=== PATIENT | female | born 1985 | race Caucasian/White ===

== ENCOUNTER 2017-07-11 13:44 | Inpatient (IN) | payer BC ==
[2017-07-11] MEDS ORDERED: Sodium Chloride 0.9% 10 ML Syringe FLUSH PRN ×2 (13:58→14:07)
[2017-07-11] MEDS ORDERED: Nalbuphine 20 MG/1 ML Amp IVPUSH PRN (13:58)
[2017-07-11] MEDS ORDERED: Oxytocin/Lactated Ringers 10 UNIT/1,000 ML BAG IV SCH (14:00)
[2017-07-11] MEDS ORDERED: Lactated Ringers 1,000 ML IV SCH ×2 (14:00→14:15)
[2017-07-11] MEDS ORDERED: Lidocaine 1% 50 ML MDV INJECT ONE (14:07)
[2017-07-11] MEDS ORDERED: Ondansetron 4 MG/2 ML SDV IVPUSH PRN (14:07)
--- NOTE | 2017-07-11 14:25 | PCM.LDHP ---
L&D History of Present Illness - General Date of Service: 07/11/17 Admit Problem/Dx: Patient Status Order with Admit Dx/Problem 07/11/17 14:08 Patient Status [ADT] Routine Admission Diagnosis/Problem Admission Diagnosis/Problem Normal 07/12/17 05:24 Kristi is a 31-year-old 7 para 4115 female who is admitted on 07/11/2017 after being seen in clinic and found the having some mild contractions, cervix dilated to 3+ centimeters, 90% effaced, bulging bag guerra, vertex presentation , very soft cervix. She has a history of very short labors. She is admitted to labor and delivery for augmentation of labor with ruptured membranes. 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 Her DENNIS is set for 2017 by a certain last menstrual period starting 10/08/2016 and supported by 3 ultrasounds done 2016, 03/27/2017 and 06/06/2017. course was relatively unremarkable. She declined genetic screening. The EPDS score was 0 on 02/23/2017. Group B strep screen is negative. Patient declined flu vaccine. She is rubella immune. She plans to breast-feed. Prenatally patient gained approximately 29 pounds. Her vital signs are stable throughout the course. Fundal height growth was appropriate. Laboratory testing in shows her blood type AB+, negative antibody screen. Initial hemoglobin was 14.3 and platelets were 253,000. Rubella titer shows immunity. Urine culture was unremarkable. Hepatitis B surface antigen assay was negative. Second trimester testing showed a hemoglobin 11.9 g/dL. Platelets are 253,001 hour GTT was 118. Her group B strep screen was negative. Allergies: None Medications: 1. Ferrous sulfate 325 mg by mouth daily 2. vitamins 1 daily Past medical history 1. Vaginal delivery 5 2. Miscarriage February 2014 Past surgical history: 1. [place] teeth extraction 2005 Family history: parents are alive and in generally good health. Siblings are healthy. She denies any , seizure, bleeding or clotting problems in the family. Her review of systems: Skin-Negative Lungs- No infectious symptoms or shortness of breath Cardiovascular-no chest pain or exercise intolerance GI-negative -changes associated with only Musculoskeletal-negative Neurological-Negative Physical exam: Gen. patient is well-developed, well-nourished, pleasant female of stated age stressed. Skin is warm and dry without lesions. HEENT, neck and back within normal limits Cardiovascular exam shows regular rate and rhythm without murmurs. Lungs are clear with good breath sounds in all lung arechiga. Breast exam is deferred having that done at first visit found to be normal. Patient plans to breast-feed Abdomen is protuberant with fundal height of 38 cm Extremities and neurological exam grossly within normal limits. - Related Data Allergies/Adverse Reactions: Allergies Allergy/AdvReac Type Severity Reaction Status Date / Time No Known Allergies Allergy Verified 11/25/15 20:20 Home Medications: Home Meds Acetaminophen [Tylenol] 650 mg PO Q4H PRN #30 tablet 12/23/15 [Rx] Ibuprofen [IJD: Ibuprofen] 600 mg PO Q4H PRN #30 tablet 12/23/15 [Rx] Past Medical History - Past Surgical History HEENT Surgical History: Reports: Oral Surgery Social & Family History - Tobacco Use Smoking Status *Q: Never Smoker - Recreational Drug Use Recreational Drug Use: No H&P Review of Systems - Review of Systems: Review Of Systems: See Below L&D Exam - Exam Exam: See Below - Vital Signs Weight: 63.639 kg - Patient Data Result Diagrams: 07/11/17 14:14 Problem List Initiated/Reviewed/Updated: Yes Orders Last 24hrs: Active Orders 24 hr Category Date Time Status Patient Status [ADT] Routine ADT 07/11/17 14:08 Ordered Activity as Tolerated [RC] PFP Care 07/11/17 13:58 Active Activity as Tolerated [RC] PFP Care 07/11/17 14:08 Ordered Communication Order [RC] ASDIRECTED Care 07/11/17 13:58 Active Communication Order [RC] ASDIRECTED Care 07/11/17 14:08 Ordered Heart Tones [RC] ASDIRECTED Care 07/11/17 13:58 Active Heart Tones [RC] ASDIRECTED Care 07/11/17 14:08 Ordered Notify Provider [RC] PFP Care 07/11/17 13:58 Active Notify Provider [RC] PFP Care 07/11/17 14:08 Ordered Notify Provider [RC] PRN Care 07/11/17 13:58 Active Notify Provider [RC] PRN Care 07/11/17 14:08 Ordered Peripheral IV Care [RC] . DIRECTED Care 07/11/17 13:58 Active Peripheral IV Care [RC] . DIRECTED Care 07/11/17 14:08 Ordered Vital Signs [RC] PER UNIT ROUTINE Care 07/11/17 13:58 Active Vital Signs [RC] PER UNIT ROUTINE Care 07/11/17 14:08 Ordered Regular Diet [DIET] Diet 07/11/17 Dinner Active Regular Diet [DIET] Diet 07/11/17 Lunch Ordered CBC WITH AUTO DIFF [HEME] Stat Lab 07/11/17 13:58 Ordered Lactated Ringers [Ringers, Lactated] 1,000 ml Med 07/11/17 14:00 Active IV ASDIRECTED Lactated Ringers [Ringers, Lactated] 1,000 ml Med 07/11/17 14:15 Ordered IV ASDIRECTED Nalbuphine [Nubain] Med 07/11/17 13:58 Active 10 mg IVPUSH Q2H PRN Ondansetron [Zofran] Med 07/11/17 14:07 Ordered 4 mg IVPUSH Q4H PRN Oxytocin/Lactated Ringers [Pitocin in LR 10 Units/1,000 Med 07/11/17 14:00 Active ML] 10 unit in 1,000 ml IV .CONTINUOUS Sodium Chloride 0.9% [Saline Flush] Med 07/11/17 13:58 Active 10 ml FLUSH ASDIRECTED PRN Sodium Chloride 0.9% [Saline Flush] Med 07/11/17 14:07 Ordered 10 ml FLUSH ASDIRECTED PRN Electronic Heart Tones Ext w TOCO [WOMSER] Oth 07/11/17 13:58 Ordered Routine Electronic Heart Tones Ext w TOCO [WOMSER] Oth 07/11/17 14:08 Ordered Routine Electronic Heart Tones Internal [WOMSER] Per Unit Oth 07/11/17 13:58 Ordered Routine Electronic Heart Tones Internal [WOMSER] Per Unit Oth 07/11/17 14:08 Ordered Routine Peripheral IV Insertion Adult [OM.PC] Routine Oth 07/11/17 13:58 Ordered Peripheral IV Insertion Adult [OM.PC] Routine Oth 07/11/17 14:08 Ordered Resuscitation Status Routine Resus Stat 07/11/17 13:58 Ordered Medication Orders Lactated Ringer's (Ringers, Lactated) 1,000 mls @ 100 mls/hr IV ASDIRECTED [facility] Oxytocin/Lactated Ringer's (Pitocin In Lr 10 Units/1,000 Ml) 10 unit in 1,000 mls @ 100 mls/hr IV .CONTINUOUS HÉCTOR Lactated Ringer's (Ringers, Lactated) 1,000 mls @ 100 mls/hr IV ASDIRECTED [facility] Nalbuphine HCl (Nubain) 10 mg IVPUSH Q2H PRN PRN Reason: Pain (moderate 4-6) Ondansetron HCl (Zofran) 4 mg IVPUSH Q4H PRN PRN Reason: Nausea/Vomiting Sodium Chloride (Saline Flush) 10 ml FLUSH ASDIRECTED PRN PRN Reason: Keep Vein Open Sodium Chloride (Saline Flush) 10 ml FLUSH ASDIRECTED PRN PRN Reason: Keep Vein Open Assessment/Plan Comment:: Assessment: 1. 39-3/7 week intrauterine , probable early labor, history of rapid labors 2. Group B strep screen negative 3. Rubella immune 4. Desires natural labor 5. Plans to breast-feed Plan: 1. Anticipate normal spontaneous vaginal delivery after artificial rupture membranes 2. Anticipate natural labor 3. Support breast-feeding decision.
[2017-07-11] MEDS ORDERED: Acetaminophen 325 MG Tab PO PRN (20:11)
[2017-07-11] MEDS ORDERED: Witch Hazel Medicated Pads 100/Jar TOP PRN (20:11)
[2017-07-11] MEDS ORDERED: Lanolin 100% Cream 7 GM Tube TOP PRN (20:11)
[2017-07-11] MEDS ORDERED: Benzocaine/Menthol 20%-0.5% Spray 56 GM Canister TOP PRN (20:11)
[2017-07-11] MEDS ORDERED: Docusate Sodium 100 MG Cap PO PRN (20:11)
[2017-07-11] MEDS: Ibuprofen 600 MG Tab PO PRN (22:46)
[2017-07-12] MEDS: Ibuprofen 600 MG Tab PO PRN (16:09)
--- NOTE | 2017-07-12 19:20 | PCM.PNPP ---
- General Info Admission Dx/Problem (Free Text): 07/12/2017 Post Day #1 Subjective: Patient is doing well. She has tolerated a regular diet and is ambulating without difficulty. Pain is well controlled at this time and lochia is minimal. Patient is without difficulty. Objective: Vitals: Vital Signs - 24 hr 07/11/17 07/11/17 07/12/17 21:20 23:51 04:52 Temperature 98.4 F Pulse, 118 H 104 H 105 H Peripheral Respiratory 16 Rate Blood Pressure 131/66 120/70 Blood Pressure [Right Upper Arm] O2 Sat by Pulse 98 96 97 Oximetry 07/12/17 07/12/17 14:00 14:09 Temperature 98.2 F Pulse, 71 Peripheral Respiratory 15 Rate Blood Pressure Blood Pressure 106/62 [Right Upper Arm] O2 Sat by Pulse 91 L Oximetry Physical Exam General: Alert, oriented and in no acute distress Lungs: Clear to auscultation bilaterally Heart: Regular rate and rhythm Abdomen: Soft, non-distended, nontender, and fundus palpated at the umbilicus Extremities: No significant edema present ASSESSMENT: 31-year-old female 7, now para 5-1-1-6 with a normal spontaneous vaginal delivery on 07/11/2017 at 39 and 3/7ths weeks gestational age, day #1 PLAN: Doing well with no concerns at this time Continue breast feeding Minimal lochia Continue routine care Discharge home tomorrow - Patient Data Vital Signs - Most Recent: Last Vital Signs Temp 98.2 F 07/12/17 14:09 Pulse 71 07/12/17 14:09 Resp 15 07/12/17 14:09 BP 106/62 07/12/17 14:00 Pulse Ox 91 L 07/12/17 14:09 Weight - Most Recent: 140 lb 4.8 oz I&O - Last 24 Hours: Intake & Output 07/12/17 07/12/17 07/12/17 06:59 14:59 22:59 Intake Total 240 270 Balance 240 270 Lab Results - Last 24 Hours: Laboratory Results - last 24 hr 07/12/17 Range/Units 18:06 WBC 14.06 H (3.98-10.04) K/mm3 RBC 3.71 L (3.98-5.22) M/mm3 Hgb 9.0 L (11.2-15.7) gm/L Hct 29.3 L (34.1-44.9) % MCV 79.0 L (79.4-94.8) fl MCH 24.3 L (25.6-32.2) pg MCHC 30.7 L (32.2-35.5) g/dl RDW Std Deviation 43.3 (36.4-46.3) fL Plt Count 207 (182-369) K/mm3 MPV 10.0 (9.4-12.3) fl Med Orders - Current: Current Medications Acetaminophen (Tylenol) 650 mg PO Q4H PRN PRN Reason: mild pain or fever Benzocaine/Menthol (Dermoplast Pain Relief [place]) 0 gm TOP ASDIRECTED PRN PRN Reason: Perineal Comfort Measure Docusate Sodium (Colace) 100 mg PO BID PRN PRN Reason: Constipation Emollient Ointment (Lansinoh Hpa) 0 gm TOP ASDIRECTED PRN PRN Reason: Sore Nipples Ibuprofen (Motrin) 600 mg PO Q4H PRN PRN Reason: Mild pain or fever Last Admin: 07/12/17 16:09 Dose: 600 mg Witch Aide (Tucks) 1 pad TOP ASDIRECTED PRN PRN Reason: Hemorrhoid pain Discontinued Medications Lactated Ringer's (Ringers, Lactated) 1,000 mls @ 100 mls/hr IV ASDIRECTED [facility] Oxytocin/Lactated Ringer's (Pitocin In Lr 10 Units/1,000 Ml) 10 unit in 1,000 mls @ 100 mls/hr IV .CONTINUOUS HÉCTOR Last Admin: 07/11/17 18:42 Dose: 100 mls/hr Lactated Ringer's (Ringers, Lactated) 1,000 mls @ 100 mls/hr IV ASDIRECTED [facility] Lidocaine HCl (Xylocaine 1%) 10 ml INJECT ONETIME ONE Stop: 07/11/17 14:08 Last Admin: 07/12/17 15:00 Dose: Not Given Nalbuphine HCl (Nubain) 10 mg IVPUSH Q2H PRN PRN Reason: Pain (moderate 4-6) Ondansetron HCl (Zofran) 4 mg IVPUSH Q4H PRN PRN Reason: Nausea/Vomiting Sodium Chloride (Saline Flush) 10 ml FLUSH ASDIRECTED PRN PRN Reason: Keep Vein Open Sodium Chloride (Saline Flush) 10 ml FLUSH ASDIRECTED PRN PRN Reason: Keep Vein Open - Interaction Support Person: - Recovery Exam Fundal Tone: Firm Fundal Level: At Umbilicus Fundal Placement: Midline Lochia Amount: Small Lochia Color: Rubra/Red Perineum Description: Intact, Minimal Bruising/Swelling Episiotomy/Laceration: None Bladder Status: Voiding Urinary Elimination: Voided - Problem List Review Problem List Initiated/Reviewed/Updated: Yes - Plan Plan:: Assessment: 1. 39-3/7 week intrauterine , probable early labor, history of rapid labors 2. Group B strep screen negative 3. Rubella immune 4. Desires natural labor 5. Plans to breast-feed Plan: 1. Anticipate normal spontaneous vaginal delivery after artificial rupture membranes 2. Anticipate natural labor 3. Support breast-feeding decision.
[2017-07-13 05:56] VITALS: BP 119/77
--- NOTE | 2017-07-13 08:25 | PCM.PNPP ---
<Elias Reyes - Last Filed: 07/13/17 08:28> - General Info Admission Dx/Problem (Free Text): 07/13/2017 Post Day #2 Subjective: Patient is doing well. She has tolerated a regular diet and is ambulating without difficulty. Pain is well controlled at this time with Ibuprofen and lochia is minimal. Patient is without difficulty. Objective: Vitals: Vital Signs - 8 hr 07/13/17 07/13/17 04:00 05:41 Temperature 97.5 F Temperature [ 97.6 F Temporal] Pulse, 100 Peripheral Pulse, 104 H Peripheral [ Right Arterial] Respiratory 16 16 Rate Blood Pressure 119/77 Blood Pressure 119/77 [Right Upper Arm] O2 Sat by Pulse 99 99 Oximetry Physical Exam General: Alert, oriented and in no acute distress Lungs: Clear to auscultation bilaterally Heart: Regular rate and rhythm Abdomen: Soft, non-distended, nontender, and fundus palpated below the umbilicus Extremities: No significant edema present ASSESSMENT: 31-year-old female 7, now para 5-1-1-6 with a normal spontaneous vaginal delivery on 07/11/2017 at 39 and 3/7ths weeks gestational age, day #2 PLAN: Doing well with no concerns at this time Continue breast feeding Minimal lochia Continue routine care Discharge home tomorrow, return to clinic in 2 weeks Continue to take vitamins with additional calcium supplementation Consider adding iron supplements to compensate for Hgb of 9.0 g/dL - Patient Data Vital Signs - Most Recent: Last Vital Signs Temp 97.5 F 07/13/17 05:41 Pulse 100 07/13/17 05:41 Resp 16 07/13/17 05:41 BP 119/77 07/13/17 05:41 Pulse Ox 99 07/13/17 05:41 Weight - Most Recent: 63.639 kg I&O - Last 24 Hours: Intake & Output 07/12/17 07/13/17 07/13/17 22:59 06:59 14:59 Intake Total 330 Balance 330 Lab Results - Last 24 Hours: Laboratory Results - last 24 hr 07/12/17 Range/Units 18:06 WBC 14.06 H (3.98-10.04) K/mm3 RBC 3.71 L (3.98-5.22) M/mm3 Hgb 9.0 L (11.2-15.7) gm/L Hct 29.3 L (34.1-44.9) % MCV 79.0 L (79.4-94.8) fl MCH 24.3 L (25.6-32.2) pg MCHC 30.7 L (32.2-35.5) g/dl RDW Std Deviation 43.3 (36.4-46.3) fL Plt Count 207 (182-369) K/mm3 MPV 10.0 (9.4-12.3) fl Med Orders - Current: Current Medications Acetaminophen (Tylenol) 650 mg PO Q4H PRN PRN Reason: mild pain or fever Benzocaine/Menthol (Dermoplast Pain Relief [place]) 0 gm TOP ASDIRECTED PRN PRN Reason: Perineal Comfort Measure Docusate Sodium (Colace) 100 mg PO BID PRN PRN Reason: Constipation Emollient Ointment (Lansinoh Hpa) 0 gm TOP ASDIRECTED PRN PRN Reason: Sore Nipples Ibuprofen (Motrin) 600 mg PO Q4H PRN PRN Reason: Mild pain or fever Last Admin: 07/12/17 16:09 Dose: 600 mg Witch Aide (Tucks) 1 pad TOP ASDIRECTED PRN PRN Reason: Hemorrhoid pain Discontinued Medications Lactated Ringer's (Ringers, Lactated) 1,000 mls @ 100 mls/hr IV ASDIRECTED [facility] Oxytocin/Lactated Ringer's (Pitocin In Lr 10 Units/1,000 Ml) 10 unit in 1,000 mls @ 100 mls/hr IV .CONTINUOUS HÉCTOR Last Admin: 07/11/17 18:42 Dose: 100 mls/hr Lactated Ringer's (Ringers, Lactated) 1,000 mls @ 100 mls/hr IV ASDIRECTED [facility] Lidocaine HCl (Xylocaine 1%) 10 ml INJECT ONETIME ONE Stop: 07/11/17 14:08 Last Admin: 07/12/17 15:00 Dose: Not Given Nalbuphine HCl (Nubain) 10 mg IVPUSH Q2H PRN PRN Reason: Pain (moderate 4-6) Ondansetron HCl (Zofran) 4 mg IVPUSH Q4H PRN PRN Reason: Nausea/Vomiting Sodium Chloride (Saline Flush) 10 ml FLUSH ASDIRECTED PRN PRN Reason: Keep Vein Open Sodium Chloride (Saline Flush) 10 ml FLUSH ASDIRECTED PRN PRN Reason: Keep Vein Open - Interaction Support Person: - Recovery Exam Fundal Tone: Firm Fundal Level: At Umbilicus Fundal Placement: Midline Lochia Amount: Small Lochia Color: Rubra/Red Perineum Description: Intact, Minimal Bruising/Swelling Episiotomy/Laceration: None Bladder Status: Voiding Urinary Elimination: Voided - Problem List Review Problem List Initiated/Reviewed/Updated: Yes - Plan Plan:: Assessment: 1. 39-3/7 week intrauterine , probable early labor, history of rapid labors 2. Group B strep screen negative 3. Rubella immune 4. Desires natural labor 5. Plans to breast-feed Plan: 1. Anticipate normal spontaneous vaginal delivery after artificial rupture membranes 2. Anticipate natural labor 3. Support breast-feeding decision. <Dago Ware - Last Filed: 07/13/17 08:41> - Patient Data Vital Signs - Most Recent: Last Vital Signs Temp 36.4 C 07/13/17 05:41 Pulse 100 07/13/17 05:41 Resp 16 07/13/17 05:41 BP 119/77 07/13/17 05:41 Pulse Ox 99 07/13/17 05:41 I&O - Last 24 Hours: Intake & Output 07/12/17 07/13/17 07/13/17 22:59 06:59 14:59 Intake Total 330 Balance 330 Lab Results - Last 24 Hours: Laboratory Results - last 24 hr 07/12/17 Range/Units 18:06 WBC 14.06 H (3.98-10.04) K/mm3 RBC 3.71 L (3.98-5.22) M/mm3 Hgb 9.0 L (11.2-15.7) gm/L Hct 29.3 L (34.1-44.9) % MCV 79.0 L (79.4-94.8) fl MCH 24.3 L (25.6-32.2) pg MCHC 30.7 L (32.2-35.5) g/dl RDW Std Deviation 43.3 (36.4-46.3) fL Plt Count 207 (182-369) K/mm3 MPV 10.0 (9.4-12.3) fl Med Orders - Current: Current Medications Acetaminophen (Tylenol) 650 mg PO Q4H PRN PRN Reason: mild pain or fever Benzocaine/Menthol (Dermoplast Pain Relief [place]) 0 gm TOP ASDIRECTED PRN PRN Reason: Perineal Comfort Measure Docusate Sodium (Colace) 100 mg PO BID PRN PRN Reason: Constipation Emollient Ointment (Lansinoh Hpa) 0 gm TOP ASDIRECTED PRN PRN Reason: Sore Nipples Ibuprofen (Motrin) 600 mg PO Q4H PRN PRN Reason: Mild pain or fever Last Admin: 07/12/17 16:09 Dose: 600 mg Witch Aide (Tucks) 1 pad TOP ASDIRECTED PRN PRN Reason: Hemorrhoid pain Discontinued Medications Lactated Ringer's (Ringers, Lactated) 1,000 mls @ 100 mls/hr IV ASDIRECTED [facility] Oxytocin/Lactated Ringer's (Pitocin In Lr 10 Units/1,000 Ml) 10 unit in 1,000 mls @ 100 mls/hr IV .CONTINUOUS HÉCTOR Last Admin: 07/11/17 18:42 Dose: 100 mls/hr Lactated Ringer's (Ringers, Lactated) 1,000 mls @ 100 mls/hr IV ASDIRECTED HÉCTOR Lidocaine HCl (Xylocaine 1%) 10 ml INJECT ONETIME ONE Stop: 07/11/17 14:08 Last Admin: 07/12/17 15:00 Dose: Not Given Nalbuphine HCl (Nubain) 10 mg IVPUSH Q2H PRN PRN Reason: Pain (moderate 4-6) Ondansetron HCl (Zofran) 4 mg IVPUSH Q4H PRN PRN Reason: Nausea/Vomiting Sodium Chloride (Saline Flush) 10 ml FLUSH ASDIRECTED PRN PRN Reason: Keep Vein Open Sodium Chloride (Saline Flush) 10 ml FLUSH ASDIRECTED PRN PRN Reason: Keep Vein Open - Plan Plan:: Plan above is from prior to delivery. Patient is overall doing well. Continue to monitor her lochia. Assist with breast-feeding as needed. Anticipate discharge home today. Dago Ware M.D. 8:41 AM 07/13/2017
--- NOTE | 2017-07-13 09:14 | PCM.DCSUM1 ---
Discharge Summary - Hospital Course Free Text/Narrative:: 31-year-old female 7, now para 5-1-1-6 with a normal spontaneous vaginal delivery on 07/11/2017 at 39 and 3/7ths weeks gestational age, day #2 HPI Initial Comments: 31-year-old female 7, now para 5-1-1-6 with a normal spontaneous vaginal delivery on 07/11/2017 at 39 and 3/7ths weeks gestational age, day #2 Brief History: 31-year-old female 7, now para 5-1-1-6 with a normal spontaneous vaginal delivery on 07/11/2017 at 39 and 3/7ths weeks gestational age, day #2 - Discharge Data Discharge Date: 07/13/17 Discharge Disposition: Home, Self-Care 01 Condition: Good - Discharge Diagnosis/Problem(s) (1) 39 weeks gestation of SNOMED Code(s): 29060639 ICD Code: Z3A.39 - 39 WEEKS GESTATION OF Status: Acute Current Visit: Yes (2) Grand multiparity SNOMED Code(s): 28282983 ICD Code: Z64.1 - PROBLEMS RELATED TO MULTIPARITY Status: Acute Current Visit: Yes (3) Vaginal delivery SNOMED Code(s): 929886331 ICD Code: O80 - ENCOUNTER FOR FULL-TERM UNCOMPLICATED DELIVERY Status: Acute Current Visit: Yes - Patient Summary/Data Complications: None Consults: None Hospital Course: Kristi Agudelo was admitted for augmentation of labor in the setting of spontaneous rupture membranes. On admission her cervix was dilated to 3 cm. She was GBS negative. She was given pitocin for augmentation. She had spontaneous rupture of membranes with clear fluid. She progressed to complete and began pushing. On 07/11/2017 she had a normal vaginal delivery of a live female at 1840. Apgars of 9 and 9. Weight of 3120 g (6 pounds 14.1 ounces). Her course was uneventful. Her pain was well controlled and she had minimal lochia. She was ambulating, tolerating a regular diet and voiding normally. She was breast feeding with bottle supplementation. She was afebrile and her hematocrit was 29.3 on day #1. She desired to be discharged home on the morning of PPD #2. Her blood type is AB+. - Patient Instructions Diet: Regular Diet as Tolerated Activity: As Tolerated Activity, Other: Nothing in vagina for 6 weeks Driving: May Drive Today Showering/Bathing: May Shower Notify Provider of: Fever, Increased Pain, Swelling and Redness, Drainage, Nausea and/or Vomiting Other/Special Instructions: Please contact office if having heavy vaginal bleeding enough to soak a pad in less than an hour for 3 hours - Discharge Plan Home Medications: Home Meds Acetaminophen [Tylenol] 650 mg PO Q6H PRN tablet 07/13/17 [Rx] Benzocaine/Menthol [Dermoplast Pain Relief [place]] 1 spray TOP ASDIRECTED PRN canister 07/13/17 [Rx] Docusate Sodium [Colace] 100 mg PO BID PRN cap 07/13/17 [Rx] Ibuprofen [IJD: Ibuprofen] 600 mg PO Q6H PRN tablet 07/13/17 [Rx] Lanolin [Lansinoh HPA] 1 applic TOP ASDIRECTED PRN tube 07/13/17 [Rx] Patient Handouts: Home Care Instructions for Mom, Challenges and Solutions Referrals: Delon Lopez MD [Primary Care Provider] - (Follow-up in 2 weeks or earlier as needed for visit.) - Discharge Summary/Plan Comment DC Time >30 min.: No - Patient Data Vitals - Most Recent: Last Vital Signs Temp 36.4 C 07/13/17 05:41 Pulse 100 07/13/17 05:41 Resp 16 07/13/17 05:41 BP 119/77 07/13/17 05:41 Pulse Ox 99 07/13/17 05:41 Weight - Most Recent: 63.639 kg I&O - Last 24 hours: Intake & Output 07/12/17 07/13/17 07/13/17 22:59 06:59 14:59 Intake Total 330 Balance 330 Lab Results - Last 24 hrs: Laboratory Results - last 24 hr 07/12/17 Range/Units 18:06 WBC 14.06 H (3.98-10.04) K/mm3 RBC 3.71 L (3.98-5.22) M/mm3 Hgb 9.0 L (11.2-15.7) gm/L Hct 29.3 L (34.1-44.9) % MCV 79.0 L (79.4-94.8) fl MCH 24.3 L (25.6-32.2) pg MCHC 30.7 L (32.2-35.5) g/dl RDW Std Deviation 43.3 (36.4-46.3) fL Plt Count 207 (182-369) K/mm3 MPV 10.0 (9.4-12.3) fl Med Orders - Current: Current Medications Acetaminophen (Tylenol) 650 mg PO Q4H PRN PRN Reason: mild pain or fever Benzocaine/Menthol (Dermoplast Pain Relief [place]) 0 gm TOP ASDIRECTED PRN PRN Reason: Perineal Comfort Measure Docusate Sodium (Colace) 100 mg PO BID PRN PRN Reason: Constipation Emollient Ointment (Lansinoh Hpa) 0 gm TOP ASDIRECTED PRN PRN Reason: Sore Nipples Ibuprofen (Motrin) 600 mg PO Q4H PRN PRN Reason: Mild pain or fever Last Admin: 07/12/17 16:09 Dose: 600 mg Witch Aide (Tucks) 1 pad TOP ASDIRECTED PRN PRN Reason: Hemorrhoid pain Discontinued Medications Lactated Ringer's (Ringers, Lactated) 1,000 mls @ 100 mls/hr IV ASDIRECTED [facility] Oxytocin/Lactated Ringer's (Pitocin In Lr 10 Units/1,000 Ml) 10 unit in 1,000 mls @ 100 mls/hr IV .CONTINUOUS HÉCTOR Last Admin: 07/11/17 18:42 Dose: 100 mls/hr Lactated Ringer's (Ringers, Lactated) 1,000 mls @ 100 mls/hr IV ASDIRECTED [facility] Lidocaine HCl (Xylocaine 1%) 10 ml INJECT ONETIME ONE Stop: 07/11/17 14:08 Last Admin: 07/12/17 15:00 Dose: Not Given Nalbuphine HCl (Nubain) 10 mg IVPUSH Q2H PRN PRN Reason: Pain (moderate 4-6) Ondansetron HCl (Zofran) 4 mg IVPUSH Q4H PRN PRN Reason: Nausea/Vomiting Sodium Chloride (Saline Flush) 10 ml FLUSH ASDIRECTED PRN PRN Reason: Keep Vein Open Sodium Chloride (Saline Flush) 10 ml FLUSH ASDIRECTED PRN PRN Reason: Keep Vein Open
== END 2017-07-13 09:40 | disposition home or self-care (01) | DRG 560 ==
LOC: JD.OBCHECK 13:44 → JD.OB 13:45 → JD.OBCHECK 14:07 → JD.OB 14:08 → OBSVTOIN 18:40 → JD.OB 18:40
PROVIDERS: ADMIT Obstetrics & Gynecology; ATTEND Obstetrics & Gynecology
PROC: 10E0XZZ Delivery of Products of Conception, External Approach (ICD-10-PCS; principal; 2017-07-12)
PROC: 10907ZC Drainage of Amniotic Fluid, Therapeutic from Products of Conception, Via Natural or Artificial Opening (ICD-10-PCS; 2017-07-12)
DX: O69.81X0 Labor and delivery complicated by cord around neck, without compression, not applicable or unspecified (principal); Z3A.39 39 weeks gestation of pregnancy; Z37.0 Single live birth
CPT/HCPCS: 36415; 59025; 59409; 85025; 85027; A9270-GY; J2590

== ENCOUNTER 2020-02-21 16:02 | Inpatient (IN) | payer OTHER ==
[2020-02-21] MEDS ORDERED: Sodium Chloride 0.9% 10 ML Syringe FLUSH PRN (16:33)
[2020-02-21] MEDS ORDERED: Ondansetron 4 MG/2 ML SDV IVPUSH PRN (16:33)
[2020-02-21] MEDS ORDERED: Nalbuphine 10 MG/1 ML Vial IVPUSH PRN (16:33)
[2020-02-21] MEDS ORDERED: Oxytocin/Lactated Ringers 10 UNIT/1,000 ML BAG IV SCH ×2 (16:45→18:00)
[2020-02-21] MEDS ORDERED: Lactated Ringers 1,000 ML IV SCH (16:45)
[2020-02-21] MEDS ORDERED: Oxytocin/Lactated Ringers 10 UNIT/1,000 ML BAG IV ONE (16:47)
[2020-02-21] MEDS ORDERED: Hydrocortisone Acetate 25 MG Supp RECTAL PRN (17:52)
[2020-02-21] MEDS ORDERED: Benzocaine/Menthol 20%-0.5% Spray 56 GM Canister TOP PRN (17:52)
[2020-02-21] MEDS ORDERED: Witch Hazel Medicated Pads 40/Jar TOP PRN (17:52)
[2020-02-21] MEDS ORDERED: Acetaminophen 325 MG Tab PO PRN (17:52)
[2020-02-21] MEDS ORDERED: Magnesium Hydroxide 400 MG/5 ML Susp 30 ML Cup PO PRN (17:52)
[2020-02-21] MEDS ORDERED: Docusate Sodium 100 MG Cap PO PRN (17:52)
--- NOTE | 2020-02-21 18:03 | PCM.LDHP ---
L&D History of Present Illness - General Date of Service: 02/21/20 Admit Problem/Dx: Patient Status Order with Admit Dx/Problem 02/21/20 16:05 Patient Status [ADT] Routine Admission Diagnosis/Problem Admission Diagnosis/Problem Vaginal delivery Source of Information: Patient History Limitations: Reports: No Limitations - History of Present Illness Introduction:: Kristi Agudelo is a 84-year-old -0-1-6 at 37 weeks 6 days ([place] 03/07/2020) by LMP consistent with 17-week ultrasound who presents for evaluation of possible labor. She reports that at around 1 PM she started to have contractions that were approximately 11 minutes apart and were quite painful at that time. She then took her son to a basketball game and noted that the contractions were getting closer together and continue to be quite painful. She presented to labor and delivery after she dropped her son off at the basketball game. She reports that when she got here the contractions were about every 6 to 7 minutes apart. She denies any leaking of fluid or vaginal bleeding. Reports that she has been feeling good movement. Timing/Duration: Reports: sudden onset (1 PM), intermittent (Contractions about every 7 to 11 minutes.) Location, : Reports: Lower back, Pelvic, Uterus Quality: Reports: Pressure, Throbbing Severity: Severe Improves with: Reports: None Worsens with: Reports: None Associated Symptoms: Denies: vaginal bleeding, vaginal discharge, vaginal fluid Present Illness Comments:: Kristi Agudelo is a 84-year-old -0-1-6 at 37 weeks 6 days ([place] 03/07/2020) by LMP consistent with 17-week ultrasound who presents with spontaneous labor. She has had routine care with Dr. Lopez starting at 12 weeks gestati onal age. This was overall uncomplicated. She received Tdap vaccine on 12/18/2019. She did not receive flu vaccine during this but is thinking that she is going to get it after delivery. This is complicated by: * Grand multiparity with 6 previous vaginal deliveries. She denies any complications or hemorrhage with previous deliveries. * Acid reflux disease not requiring significant amounts of medication towards the end of the METROLOGIST history -0-1-6 G1: 02/14/2007, 38 weeks, , male , 5 pounds 15 ounces, hypothyroidism during but resolved after delivery G2: 06/19/2008, 38 weeks, , female infant, 6 pounds 14 ounces, no complications G3: 10/03/2009, 38 weeks, , male , 7 pounds 0 ounces, labor symptoms without delivery G4: 03/27/2011, 36 weeks, , female infant, 5 pounds 14 ounces, delivery G5: SAB at 12 weeks per report G6: 12/22/2015, 36 weeks, , male infant, 6 pounds 14 ounces, delivery at 36 weeks G7: 07/11/2017, 39 weeks 3 days, , female infant, 6 pounds 14 ounces, no complications except for fast delivery G8: Current labs Blood type: AB+ Antibody screen: Negative First trimester hematocrit/hemoglobin: 37.7%/12.4 on 08/29/2019 Platelets: 238 on 08/29/2019 Pap smear: Negative on 08/29/2019 Urine culture: No evidence of urinary tract infection with probable contaminant Rubella status: Immune Hepatitis B surface antigen: Negative RPR: Negative HIV: Negative Gonorrhea: Negative Chlamydia: Negative Anatomy ultrasound: Normal anatomy, no abnormalities, normal placental location, 61st percentile One hour glucose tolerance test: 128 Second trimester hematocrit/hemoglobin: 32.5%/10.2 on 12/18/2019 Platelets: 129 on 12/18/2019 GBS status: Negative - Related Data Allergies/Adverse Reactions: Allergies Allergy/AdvReac Type Severity Reaction Status Date / Time No Known Allergies Allergy Verified 02/21/20 16:14 Home Medications: Home Meds Doxylamine Succinate [Unisom] 25 mg PO 02/21/20 [History] Lansoprazole [Prevacid] 15 mg PO 02/21/20 [History] Past Medical History - Past Health History Medical/Surgical History: Denies Medical/Surgical History Endocrine/Metabolic History: Reports: Hypothyroidism (in first ) - Past Surgical History HEENT Surgical History: Reports: Oral Surgery (wisdom tooth extraction) Social & Family History - Family History Family Medical History: No Pertinent Family History - Tobacco Use Tobacco Use Status *Q: Never Tobacco User Tobacco Use Within Last Twelve Months: No - Tobacco Core Measures Tobacco Use/Smoking Within Last 30 Days: No Smokeless Tobacco Use in Last 30 Days: No - Caffeine Use Caffeine Use: Reports: Coffee Caffeine Use Comment: occasional - Alcohol Use Alcohol Use History: No - Recreational Drug Use Recreational Drug Use: No Drug Use in Last 12 Months: No - Living Situation & Occupation Living situation: Reports: , with Spouse, with Family Occupation: Employed H&P Review of Systems - Review of Systems: Review Of Systems: See Below General: Denies: Fever, Chills, Malaise, Weakness, Fatigue HEENT: Denies: Headaches, Rhinitis, Post Nasal Drip, Sinus Congestion, Sore Throat, Visual Changes Pulmonary: Denies: Shortness of Breath, Wheezing, Pleuritic Chest Pain, Cough Cardiovascular: Denies: Chest Pain, Palpitations, Dyspnea on Exertion, Orthopnea Gastrointestinal: Denies: Abdominal Pain, Anorexia, Constipation, Diarrhea, Nausea, Vomiting Genitourinary: Denies: Dysuria, Frequency, Burning, Pain, Urgency Musculoskeletal: Reports: Back Pain (And hip pain of ) Skin: Denies: Rash, Lesions Psychiatric: Denies: Depression, Anxiety Neurological: Denies: Dizziness Hematologic/Lymphatic: Reports: Anemia L&D Exam - Exam Exam: See Below - Vital Signs Vital Signs: Last Vital Signs Temp 36.7 C 02/21/20 16:05 Pulse 85 02/21/20 16:05 Resp 16 02/21/20 16:05 BP 126/50 L 02/21/20 16:05 Pulse Ox 100 02/21/20 16:05 Weight: 62.823 kg - OB Specific Contraction Duration (sec): 60-75 Contraction Frequency (min): 2-5 Contraction Intensity: Strong Movement: Active Heart Tones: Present Heart Tones per Min: 140 (+15 x 15 accelerations, no decelerations) Heart Rate (FHR) Variability: Moderate (6-25 bmp) Presentation: Vertex Estimated Weight: 6-6.5 pounds by Guy - Hoover Score Hoover Score Cervix Position: Anterior Hoover Score Consistency: Soft Hoover Score Effacement: >80% (100%) Hoover Score Dilation: > 5 cm (9 cm) Hoover Score Infant's Station: +1, +2 (+1) Hoover Score Total: 13 - Exam General: Alert, Oriented HEENT: Conjunctiva Clear, EOMI Neck: Supple, Trachea Midline Lungs: Clear to Auscultation, Normal Respiratory Effort Cardiovascular: Regular Rate, Regular Rhythm GI/Abdominal Exam: Soft, Non-Tender, No Distention, Other (Gravid). No: Guarding, Rigid, Rebound Genitourinary: Normal external exam, Other (Artificial rupture membranes with return of clear fluid) Extremities: Normal Inspection, No Pedal Edema Skin: Warm, Dry, Intact Psychiatric: Alert, Normal Affect, Normal Mood - Patient Data Lab Results Last 24 hrs: Laboratory Results - last 24 hr 02/21/20 02/21/20 Range/Units 16:27 16:50 WBC 7.45 (3.98-10.04) K/mm3 RBC 4.03 (3.98-5.22) M/mm3 Hgb 9.7 L (11.2-15.7) gm/dl Hct 33.1 L (34.1-44.9) % MCV 82.1 D (79.4-94.8) fl MCH 24.1 L (25.6-32.2) pg MCHC 29.3 L (32.2-35.5) g/dl RDW Std Deviation 45.7 (36.4-46.3) fL Plt Count 239 (182-369) K/mm3 MPV 10.2 (9.4-12.3) fl Neut % (Auto) 71.5 H (34.0-71.1) % Lymph % (Auto) 19.2 L (19.3-51.7) % [place] % (Auto) 7.4 (4.7-12.5) % Eos % (Auto) 1.2 (0.7-5.8) Baso % (Auto) 0.3 (0.1-1.2) % Neut # (Auto) 5.33 (1.56-6.13) K/mm3 Lymph # (Auto) 1.43 (1.18-3.74) K/mm3 [place] # (Auto) 0.55 H (0.24-0.36) K/mm3 Eos # (Auto) 0.09 (0.04-0.36) K/mm3 Baso # (Auto) 0.02 (0.01-0.08) K/mm3 Manual Slide Review Abnormal smear SARS-CoV-2 RNA (LISBETH) Negative (NEGATIVE) Result Diagrams: 02/21/20 16:50 - Problem List (1) 37 weeks gestation of SNOMED Code(s): 74380661 ICD Code: Z3A.37 - 37 WEEKS GESTATION OF Status: Acute Current Visit: Yes (2) Grand multiparity SNOMED Code(s): 69141585 ICD Code: Z64.1 - PROBLEMS RELATED TO MULTIPARITY Status: Acute Current Visit: No Problem List Initiated/Reviewed/Updated: Yes Orders Last 24hrs: Active Orders 24 hr Category Date Time Status Patient Status Manage Transfer [TRANSFER] Routine ADT 02/21/20 17:45 Ordered Patient Status [ADT] Routine ADT 02/21/20 16:05 Active Activity as Tolerated [RC] PFP Care 02/21/20 16:34 Active Communication Order [RC] ASDIRECTED Care 02/21/20 16:34 Active Heart Tones [RC] ASDIRECTED Care 02/21/20 16:34 Active Non Stress Test [RC] PER UNIT ROUTINE Care 02/21/20 16:05 Active Non Stress Test [RC] PER UNIT ROUTINE Care 02/21/20 16:34 Active Notify Provider [RC] PFP Care 02/21/20 16:34 Active Notify Provider [RC] PRN Care 02/21/20 16:34 Active Peripheral IV Care [RC] . DIRECTED Care 02/21/20 16:34 Active Vital Signs [RC] PER UNIT ROUTINE Care 02/21/20 16:05 Active Vital Signs [RC] PER UNIT ROUTINE Care 02/21/20 16:34 Active Regular Diet [DIET] Diet 02/21/20 Dinner Active BLOOD BANK HOLD SPECIMEN [BBK] Stat Lab 02/21/20 16:50 Received RAPID PLASMA REAGIN,RPR [CHEM] Routine Lab 02/21/20 16:50 Received Lactated Ringers [Ringers, Lactated] 1,000 ml Med 02/21/20 16:45 Active IV ASDIRECTED Nalbuphine [Nubain] Med 02/21/20 16:33 Active 10 mg IVPUSH Q2H PRN Ondansetron [Zofran] Med 02/21/20 16:33 Active 4 mg IVPUSH Q4H PRN Oxytocin/Lactated Ringers [Pitocin in LR 10 Units/1,000 Med 02/21/20 16:45 Active ML] 10 unit in 1,000 ml IV .CONTINUOUS Sodium Chloride 0.9% [Saline Flush] Med 02/21/20 16:33 Active 10 ml FLUSH ASDIRECTED PRN Electronic Heart Tones Ext w TOCO [WOMSER] Oth 02/21/20 16:34 Ordered Routine Electronic Heart Tones Internal [WOMSER] Per Unit Ot 02/21/20 16:34 Ordered Routine Peripheral IV Insertion Adult [OM.PC] Routine Ot 02/21/20 16:34 Ordered Resuscitation Status Routine Resus Stat 02/21/20 16:05 Ordered Medication Orders Lactated Ringer's (Ringers, Lactated) 1,000 mls @ 100 mls/hr IV ASDIRECTED HÉCTOR Oxytocin/Lactated Ringer's (Pitocin In Lr 10 Units/1,000 Ml) 10 unit in 1,000 mls @ 100 mls/hr IV .CONTINUOUS HÉCTOR Last Admin: 02/21/20 17:21 Dose: 500 mls/hr Documented by: HANG Nalbuphine HCl (Nubain) 10 mg IVPUSH Q2H PRN PRN Reason: Pain Ondansetron HCl (Zofran) 4 mg IVPUSH Q4H PRN PRN Reason: Nausea/Vomiting Sodium Chloride (Saline Flush) 10 ml FLUSH ASDIRECTED PRN PRN Reason: Keep Vein Open Assessment/Plan Comment:: Kristi Agudelo is a 34-year-old -0-1-6 female at 37 weeks 6 days by LMP consistent with 17-week ultrasound who presents with active labor with cervical dilation of 8 cm on initial presentation Patient had artificial rupture membranes with return of clear fluid. Mother and tolerated procedure without difficulty. Patient progressed to complete and pushing within 5 minutes of artificial rupture membranes. Refer to observation for spontaneous labor with cervical change Continuous monitoring Place IV and have Lactated Ringer's at 125 ml/hr May have small amounts of regular diet Activity as tolerated May have epidural as desired Plans to breast-feed after delivery Anticipate vaginal delivery unless otherwise indicated H&P note written after delivery with entirety of history and physical performed prior to delivery. Dago Ware MD 6:09 PM 02/21/2020
--- NOTE | 2020-02-21 18:14 | PCM.DEL ---
L & D Note - General Info Date of Service: 02/21/20 Mother's Due Date: 03/07/20 - Delivery Note Labor: Spontaneous, Augmented by ARM Delivery Outcome: Livebirth Delivery Method: Spontaneous Vaginal Delivery-Single Delivery Mode: Spontaneous Presentation: Left Occiput Anterior (LALITA) Nuchal Cord: Present (not reduced prior to delivery) Anesthesia Type: None Amniotic Fluid Description: Clear Episiotomy Type: None Laceration: None Placenta: Intact, Spontaneous Cord: 3 Vessels Estimated Blood Loss: 300 Resuscitation Needed: No [place]: Bulb Syringe, Stimulated, Warmed, [place] Used Provider: Dago Ware Score 1 min: 9 Score 5 min: 9 Second Stage Interventions: Reports: Pushing Effectively, Pushing, Pulls Own Legs Back, Pushing, Stirrups/Leg Supports Delivery Comments (Free Text/Narrative):: Stage I: Kristi Agudelo was admitted for spontaneous labor. On admission her cervix was dilated to 8 cm. She was GBS negative. She had artificial rupture of membranes with return of clear fluid when she was 9 cm dilated. She progressed to complete and pushing. Stage II: On 02/21/2020 she had a normal vaginal delivery of a live female i nfant at 17:20. Apgars of 9 & 9. Weight of 3320 g (7 lbs 5.1 oz). Length of 20.5 inches. There was a single nuchal cord that was not able to be reduced prior to delivery. was delivered in LALITA position. The cord was doubly clamped and cut by father the . Infant was placed on mother's abdomen. Stage III: She had a spontaneous delivery of an intact placenta in Lillie presentation. Three vessel cord. She was given pitocin and fundal massage. She had no lacerations present. Mom and baby were stable to recovery. EBL of 300 mL. Dago Ware MD 6:11 PM 02/21/2020 - General Info Date of Service: 02/21/20 - Patient Data Vitals - Most Recent: Last Vital Signs Temp 36.7 C 02/21/20 16:05 Pulse 85 02/21/20 16:05 Resp 16 02/21/20 16:05 BP 126/50 L 02/21/20 16:05 Pulse Ox 100 02/21/20 16:05 Weight - Most Recent: 62.823 kg Lab Results Last 24 Hours: Laboratory Results - last 24 hr 02/21/20 02/21/20 Range/Units 16:27 16:50 WBC 7.45 (3.98-10.04) K/mm3 RBC 4.03 (3.98-5.22) M/mm3 Hgb 9.7 L (11.2-15.7) gm/dl Hct 33.1 L (34.1-44.9) % MCV 82.1 D (79.4-94.8) fl MCH 24.1 L (25.6-32.2) pg MCHC 29.3 L (32.2-35.5) g/dl RDW Std Deviation 45.7 (36.4-46.3) fL Plt Count 239 (182-369) K/mm3 MPV 10.2 (9.4-12.3) fl Neut % (Auto) 71.5 H (34.0-71.1) % Lymph % (Auto) 19.2 L (19.3-51.7) % [place] % (Auto) 7.4 (4.7-12.5) % Eos % (Auto) 1.2 (0.7-5.8) Baso % (Auto) 0.3 (0.1-1.2) % Neut # (Auto) 5.33 (1.56-6.13) K/mm3 Lymph # (Auto) 1.43 (1.18-3.74) K/mm3 [place] # (Auto) 0.55 H (0.24-0.36) K/mm3 Eos # (Auto) 0.09 (0.04-0.36) K/mm3 Baso # (Auto) 0.02 (0.01-0.08) K/mm3 Manual Slide Review Abnormal smear SARS-CoV-2 RNA (LISBETH) Negative (NEGATIVE) Med Orders - Current: Current Medications Acetaminophen (Tylenol) 650 mg PO Q6H PRN PRN Reason: mild pain or fever Benzocaine/Menthol (Dermoplast Pain Relief [place]) 0 gm TOP ASDIRECTED PRN PRN Reason: Perineal Comfort Measure Docusate Sodium (Colace) 100 mg PO BID PRN PRN Reason: Constipation Hydrocortisone Acetate (Anucort-Hc) 25 mg RECTAL BID PRN PRN Reason: Hemorrhoid pain Oxytocin/Lactated Ringer's (Pitocin In Lr 10 Units/1,000 Ml) 10 unit in 1,000 mls @ 100 mls/hr IV TITRATE HÉCTOR; Protocol Ibuprofen (Motrin) 600 mg PO Q6H PRN PRN Reason: Mild pain or fever Magnesium Hydroxide (Milk Of Magnesia) 30 ml PO BEDTIME PRN PRN Reason: Constipation Prenat Multivit/Fisher Crab/Iron/Folic Ac ( Plus Iron) 1 each PO DAILY [facility] Farzana Noble (Tucks) 1 pad TOP ASDIRECTED PRN PRN Reason: Perineal Comfort Measure Discontinued Medications Lactated Ringer's (Ringers, Lactated) 1,000 mls @ 100 mls/hr IV ASDIRECTED HÉCTOR Oxytocin/Lactated Ringer's (Pitocin In Lr 10 Units/1,000 Ml) 10 unit in 1,000 mls @ 100 mls/hr IV .CONTINUOUS HÉCTOR Last Admin: 02/21/20 17:21 Dose: 500 mls/hr Documented by: Oxytocin/Lactated Ringer's (Pitocin In Lr 10 Units/1,000 Ml) Confirm Administered Dose 10 unit in 1,000 mls @ as directed IV .STK-MED ONE Stop: 02/21/20 16:48 Last Admin: 02/21/20 16:52 Dose: Not Given Documented by: Nalbuphine HCl (Nubain) 10 mg IVPUSH Q2H PRN PRN Reason: Pain Ondansetron HCl (Zofran) 4 mg IVPUSH Q4H PRN PRN Reason: Nausea/Vomiting Sodium Chloride (Saline Flush) 10 ml FLUSH ASDIRECTED PRN PRN Reason: Keep Vein Open - Problem List & Annotations (1) 37 weeks gestation of SNOMED Code(s): 92115932 Code(s): Z3A.37 - 37 WEEKS GESTATION OF Status: Acute Current Visit: Yes (2) Grand multiparity SNOMED Code(s): 64559432 Code(s): Z64.1 - PROBLEMS RELATED TO MULTIPARITY Status: Acute Current Visit: No (3) Vaginal delivery SNOMED Code(s): 015494084 Code(s): O80 - ENCOUNTER FOR FULL-TERM UNCOMPLICATED DELIVERY Status: Acute Current Visit: No - Problem List Review Problem List Initiated/Reviewed/Updated: Yes - My Orders Last 24 Hours: My Active Orders 11/13/20 16:05 Resuscitation Status Routine 02/21/20 16:34 Heart Tones [RC] ASDIRECTED Non Stress Test [RC] PER UNIT ROUTINE Vital Signs [RC] PER UNIT ROUTINE 02/21/20 16:50 BLOOD BANK HOLD SPECIMEN [BBK] Stat RAPID PLASMA REAGIN,RPR [CHEM] Routine 02/21/20 Dinner Regular Diet [DIET] 02/21/20 17:52 Acetaminophen [TylenoL] 650 mg PO Q6H PRN Benzocaine/Menthol [Dermoplast Pain Relief [place]] See Dose Instructions TOP ASDIRECTED PRN Docusate Sodium [Colace] 100 mg PO BID PRN Hydrocortisone Acetate [Anucort-HC] 25 mg RECTAL BID PRN Ibuprofen [Motrin] 600 mg PO Q6H PRN Magnesium Hydroxide [Milk of Magnesia] 30 ml PO BEDTIME PRN witch Chel [Tucks] 1 pad TOP ASDIRECTED PRN 02/21/20 17:52 Patient Status [ADT] Routine Activity as Tolerated [RC] PER UNIT ROUTINE May Shower [RC] ASDIRECTED Notify Provider Vital Signs [RC] ASDIRECTED Vital Signs [RC] ASDIRECTED Assess Lochia [WOMSER] Per Unit Routine Assess Uterine Involution [WOMSER] Per Unit Routine Breast Pump [WOMSER] Per Unit Routine Ice Therapy [OM.PC] Per Unit Routine Medication Administration Instruction [OM.PC] Routine Perineal Care [OM.PC] Per Unit Routine Peripheral IV Discontinue [OM.PC] Routine Sitz Bath [OM.PC] Per Unit Routine 02/21/20 18:00 Oxytocin/Lactated Ringers [Pitocin in LR 10 Units/1,000 ML] 10 unit in 1,000 ml IV TITRATE Heat Therapy [OM.PC] PRN 02/22/20 09:00 Vit with Ca/FA/Iron [ Plus Iron] 1 each PO DAILY 02/22/20 18:00 Heat Therapy [OM.PC] PRN - Plan Plan:: Kristi Agudelo is a 34-year-old G8 now P7-0-1-7 female status post , PPD #0 with uncomplicated Admit to inpatient following normal spontaneous vaginal delivery Continue Pitocin per unit protocol following delivery of placenta and lactated Ringer's until tolerating regular diet Regular diet Vitals per unit routine Ibuprofen and Tylenol for pain control Assist with breast-feeding as needed Continue to monitor lochia Covid testing came back as negative Patient may receive influenza vaccine if she desires prior to discharge Anticipate discharge home on day #1 Dago Ware MD 6:11 PM 04/22/2019
[2020-02-21] MEDS ORDERED: Misoprostol 200 MCG Tab ONE (18:19)
[2020-02-21] MEDS ORDERED: Misoprostol 200 MCG Tab PO ONE (18:20)
[2020-02-21] MEDS: Ibuprofen 600 MG Tab PO PRN (20:30)
[2020-02-22] MEDS ORDERED: FLU VACC QS2020-21(6MOS UP)/PF 60 MCG/0.5 ML SYRINGE IM ONE (00:30)
[2020-02-22] MEDS: Ibuprofen 600 MG Tab PO PRN ×2 (02:40→13:59)
[2020-02-22] MEDS ORDERED: Atropine/Diphenoxylate 0.025-2.5 MG Tab PO PRN (05:18)
[2020-02-22] MEDS ORDERED: Prenatal Multivitamin with Calcium/Folic Acid/Iron Tab PO SCH (09:00)
--- NOTE | 2020-02-22 11:12 | PCM.SN.2 ---
- Free Text/Narrative Note: Post Progress Note PPD #1 Subjective: Doing well overall. Ambulating without difficulty. Lochia minimal. Voiding without difficulty. Reports that she did have several episodes of loose stools after being treated with the Cytotec. Reports her last episode of loose stool was at around 3 AM. She has not had any additional stools since then. Tolerating regular diet without nausea or vomiting. Pain controlled with oral medications. Breast-feeding with minimal difficulty. Objective: Vitals: Vital Signs - 24 hr 02/21/20 02/21/20 02/22/20 16:05 21:50 05:49 Temperature 38.3 C H 36.9 C Temperature [ 36.7 C Temporal] Pulse, 103 H 98 Peripheral Pulse, 85 Peripheral [ Pulse Oximetry] Respiratory 16 15 16 Rate Blood Pressure 117/58 L 110/70 Blood Pressure 126/50 L [Upper Arm] O2 Sat by Pulse 100 98 97 Oximetry 02/22/20 08:15 Temperature 36.4 C Temperature [ Temporal] Pulse, 89 Peripheral Pulse, Peripheral [ Pulse Oximetry] Respiratory 14 Rate Blood Pressure 113/80 Blood Pressure [Upper Arm] O2 Sat by Pulse 97 Oximetry Physical Exam General: Alert and oriented, no acute distress Lungs: Clear to auscultation bilaterally Heart: Regular rate and rhythm Abdomen: Soft, minimal appropriate tenderness, non-distended, fundus midline, nontender, and at the umbilicus Extremities: No edema Laboratory Tests 02/21/20 02/21/20 02/21/20 Range/Units 16:27 16:50 16:50 WBC 7.45 (3.98-10.04) K/mm3 RBC 4.03 (3.98-5.22) M/mm3 Hgb 9.7 L (11.2-15.7) gm/dl Hct 33.1 L (34.1-44.9) % MCV 82.1 D (79.4-94.8) fl MCH 24.1 L (25.6-32.2) pg MCHC 29.3 L (32.2-35.5) g/dl RDW Std Deviation 45.7 (36.4-46.3) fL Plt Count 239 (182-369) K/mm3 MPV 10.2 (9.4-12.3) fl Neut % (Auto) 71.5 H (34.0-71.1) % Lymph % (Auto) 19.2 L (19.3-51.7) % [place] % (Auto) 7.4 (4.7-12.5) % Eos % (Auto) 1.2 (0.7-5.8) Baso % (Auto) 0.3 (0.1-1.2) % Neut # (Auto) 5.33 (1.56-6.13) K/mm3 Lymph # (Auto) 1.43 (1.18-3.74) K/mm3 [place] # (Auto) 0.55 H (0.24-0.36) K/mm3 Eos # (Auto) 0.09 (0.04-0.36) K/mm3 Baso # (Auto) 0.02 (0.01-0.08) K/mm3 Manual Slide Review Abnormal smear RPR Non-reactive (NONREACTIVE) SARS-CoV-2 RNA (LISBETH) Negative (NEGATIVE) ASSESSMENT: 34-year-old female -0-1-7 s/p normal vaginal delivery PPD #1, complicated by grand multiparity PLAN: Doing well Breast-feeding with minimal difficulty. Assist as needed Lochia minimal. Continue to monitor for appropriate lochia. Continue routine care Anticipate discharge home today Dago Ware MD 11:11 AM 02/22/2020
--- NOTE | 2020-02-22 11:15 | PCM.DCSUM1 ---
Discharge Summary - Hospital Course Free Text/Narrative:: - General Info Date of Service: 02/21/20 Mother's Due Date: 03/07/20 - Delivery Note Labor: Spontaneous, Augmented by ARM Delivery Outcome: Livebirth Delivery Method: Spontaneous Vaginal Delivery-Single Delivery Mode: Spontaneous Presentation: Left Occiput Anterior (LALITA) Nuchal Cord: Present (not reduced prior to delivery) Anesthesia Type: None Amniotic Fluid Description: Clear Episiotomy Type: None Laceration: None Placenta: Intact, Spontaneous Cord: 3 Vessels Estimated Blood Loss: 300 Resuscitation Needed: No Gabriels: Bulb Syringe, Stimulated, Warmed, [place] Used Provider: Dago Ware Score 1 min: 9 Score 5 min: 9 Second Stage Interventions: Reports: Pushing Effectively, Pushing, Pulls Own Legs Back, Pushing, Stirrups/Leg Supports Delivery Comments (Free Text/Narrative):: Stage I: Kristi Agudelo was admitted for spontaneous labor. On admission her cervix was dilated to 8 cm. She was GBS negative. She had artificial rupture of membranes with return of clear fluid when she was 9 cm dilated. She progressed to complete and pushing. Stage II: On 02/21/2020 she had a normal vaginal delivery of a live female at 17:20. Apgars of 9 & 9. Weight of 3320 g (7 lbs 5.1 oz). Length of 20.5 inches. There was a single nuchal cord that was not able to be reduced prior to delivery. was delivered in LALITA position. The cord was doubly clamped and cut by father the infant. Infant was placed on mother's abdomen. Stage III: She had a spontaneous delivery of an intact placenta in Lillie presentation. Three vessel cord. She was given pitocin and fundal massage. She had no lacerations present. Mom and baby were stable to recovery. EBL of 300 mL. Diagnosis: Stroke: No - Discharge Data Discharge Date: 02/22/20 Discharge Disposition: Home, Self-Care 01 Condition: Good - Referral to Home Health Primary Care Physician: Delon Lopez MD - Discharge Diagnosis/Problem(s) (1) 37 weeks gestation of SNOMED Code(s): 87092311 ICD Code: Z3A.37 - 37 WEEKS GESTATION OF Status: Acute Current Visit: Yes (2) Grand multiparity SNOMED Code(s): 60571437 ICD Code: Z64.1 - PROBLEMS RELATED TO MULTIPARITY Status: Acute Current Visit: No (3) Vaginal delivery SNOMED Code(s): 898219523 ICD Code: O80 - ENCOUNTER FOR FULL-TERM UNCOMPLICATED DELIVERY Status: Acute Current Visit: No - Patient Summary/Data Complications: None Consults: None Hospital Course: Kristi Agudelo was admitted for spontaneous labor. On admission her cervix was dilated to 8 cm. She was GBS negative. She had artificial rupture of membranes with clear fluid when she was 9 cm dilated. She progressed to complete and began pushing. On 02/21/2020 she had a normal vaginal delivery of a live female at 17:20. Apgars of 9 and 9. Weight of 3320 g (7 pounds 5.1 ounces). Her course was uneventful. Her pain was well controlled and she had minimal lochia. She was ambulating, tolerating a regular diet and voiding normally. She was breast-feeding with minimal difficulty. She was afebrile and her hematocrit was 33.1 on admission. She desired to be discharged home on the afternoon of PPD #1. Her blood type is AB+. - Patient Instructions Diet: Regular Diet as Tolerated Activity: Apply Ice, As Tolerated Activity, Other: Nothing in the vagina for 6 weeks Driving: May Drive Today Showering/Bathing: May Shower Notify Provider of: Fever, Increased Pain, Swelling and Redness, Drainage, Nausea and/or Vomiting Other/Special Instructions: Please contact your physician's office if you have heavy vaginal bleeding enough to soak a pad in less than an hour for several hours. Monitor for any signs of an infection in the breasts with severe pain or redness of the breast. - Discharge Plan *PRESCRIPTION DRUG MONITORING PROGRAM REVIEWED*: Not Applicable *COPY OF PRESCRIPTION DRUG MONITORING REPORT IN PATIENT SHERRI: Not Applicable Home Medications: Home Meds Doxylamine Succinate [Unisom] 25 mg PO 02/21/20 [History] Acetaminophen [Tylenol] 650 mg PO Q6H PRN tablet 02/22/20 [Rx] Benzocaine/Menthol [Dermoplast Pain Relief Hostetter] 1 spray TOP ASDIRECTED PRN canister 02/22/20 [Rx] Hydrocortisone Acetate [Anucort-HC] 25 mg RECTAL BID PRN supp 02/22/20 [Rx] Ibuprofen [Motrin] 600 mg PO Q6H PRN tablet 02/22/20 [Rx] Vit with Ca/FA/Iron [ Plus Iron] 1 each PO DAILY tablet 02/22/20 [Rx] farzana Noble [Tucks] 1 pad TOP ASDIRECTED PRN pad 02/22/20 [Rx] Patient Handouts: Care After Vaginal Delivery Referrals: Delon Lopez MD [Primary Care Provider] - (Follow-up in 2 to 3 weeks for routine visit or earlier as needed.) - Discharge Summary/Plan Comment DC Time >30 min.: No - Patient Data Vitals - Most Recent: Last Vital Signs Temp 36.4 C 02/22/20 08:15 Pulse 89 02/22/20 08:15 Resp 14 02/22/20 08:15 BP 113/80 02/22/20 08:15 Pulse Ox 97 02/22/20 08:15 Weight - Most Recent: 62.823 kg Lab Results - Last 24 hrs: Laboratory Results - last 24 hr 02/21/20 02/21/20 02/21/20 Range/Units 16:27 16:50 16:50 WBC 7.45 (3.98-10.04) K/mm3 RBC 4.03 (3.98-5.22) M/mm3 Hgb 9.7 L (11.2-15.7) gm/dl Hct 33.1 L (34.1-44.9) % MCV 82.1 D (79.4-94.8) fl MCH 24.1 L (25.6-32.2) pg MCHC 29.3 L (32.2-35.5) g/dl RDW Std Deviation 45.7 (36.4-46.3) fL Plt Count 239 (182-369) K/mm3 MPV 10.2 (9.4-12.3) fl Neut % (Auto) 71.5 H (34.0-71.1) % Lymph % (Auto) 19.2 L (19.3-51.7) % Gage % (Auto) 7.4 (4.7-12.5) % Eos % (Auto) 1.2 (0.7-5.8) Baso % (Auto) 0.3 (0.1-1.2) % Neut # (Auto) 5.33 (1.56-6.13) K/mm3 Lymph # (Auto) 1.43 (1.18-3.74) K/mm3 Gage # (Auto) 0.55 H (0.24-0.36) K/mm3 Eos # (Auto) 0.09 (0.04-0.36) K/mm3 Baso # (Auto) 0.02 (0.01-0.08) K/mm3 Manual Slide Review Abnormal smear RPR Non-reactive (NONREACTIVE) SARS-CoV-2 RNA (LISBETH) Negative (NEGATIVE) Med Orders - Current: Current Medications Acetaminophen (Tylenol) 650 mg PO Q6H PRN PRN Reason: mild pain or fever Benzocaine/Menthol (Dermoplast Pain Relief Hostetter) 0 gm TOP ASDIRECTED PRN PRN Reason: Perineal Comfort Measure Last Admin: 02/21/20 20:40 Dose: 1 canister Documented by: Diphenoxylate HCl/Atropine (Lomotil 0.025-2.5 Mg) 1 tab PO TID PRN PRN Reason: Diarrhea Docusate Sodium (Colace) 100 mg PO BID PRN PRN Reason: Constipation Hydrocortisone Acetate (Anucort-Hc) 25 mg RECTAL BID PRN PRN Reason: Hemorrhoid pain Oxytocin/Lactated Ringer's (Pitocin In Lr 10 Units/1,000 Ml) 10 unit in 1,000 mls @ 100 mls/hr IV TITRATE HÉCTOR; Protocol Ibuprofen (Motrin) 600 mg PO Q6H PRN PRN Reason: Mild pain or fever Last Admin: 02/22/20 02:40 Dose: 600 mg Documented by: Magnesium Hydroxide (Milk Of Magnesia) 30 ml PO BEDTIME PRN PRN Reason: Constipation Prenat Multivit/Tutorial Laboratory Supervisor/Iron/Folic Ac ( Plus Iron) 1 each PO DAILY [facility] Farzana Noble (Edgars) 1 pad TOP ASDIRECTED PRN PRN Reason: Perineal Comfort Measure Last Admin: 02/21/20 20:40 Dose: 1 container Documented by: Discontinued Medications Lactated Ringer's (Ringers, Lactated) 1,000 mls @ 100 mls/hr IV ASDIRECTED HÉCTOR Oxytocin/Lactated Ringer's (Pitocin In Lr 10 Units/1,000 Ml) 10 unit in 1,000 mls @ 100 mls/hr IV .CONTINUOUS HÉCOTR Last Admin: 02/21/20 17:21 Dose: 500 mls/hr Documented by: Oxytocin/Lactated Ringer's (Pitocin In Lr 10 Units/1,000 Ml) Confirm Administered Dose 10 unit in 1,000 mls @ as directed IV .STK-MED ONE Stop: 02/21/20 16:48 Last Admin: 02/21/20 16:52 Dose: Not Given Documented by: Influenza Virus Vaccine (Pharmacy To Dose - Influenza Vaccine) 1 each IM ONETIME ONE Stop: 02/22/20 00:15 Influenza Virus Vaccine (Fluzone Quad [id number] Syringe) 60 mcg IM .ONCE ONE Stop: 02/22/20 00:31 Misoprostol (Cytotec) Confirm Administered Dose 1,000 mcg .ROUTE .STK-MED ONE Stop: 02/21/20 18:20 Last Admin: 02/21/20 18:46 Dose: Not Given Documented by: Misoprostol (Cytotec) 1,000 mcg PO ONETIME ONE Stop: 02/21/20 18:21 Last Admin: 02/21/20 18:25 Dose: 1,000 mcg Documented by: Nalbuphine HCl (Nubain) 10 mg IVPUSH Q2H PRN PRN Reason: Pain Ondansetron HCl (Zofran) 4 mg IVPUSH Q4H PRN PRN Reason: Nausea/Vomiting Sodium Chloride (Saline Flush) 10 ml FLUSH ASDIRECTED PRN PRN Reason: Keep Vein Open
[2020-02-22 19:08] VITALS: BP 111/69; PULSE 94
== END 2020-02-22 18:30 | disposition home or self-care (01) | DRG 807 ==
LOC: JD.OBCHECK 16:02 → JD.OB 16:05 → OBSVTOIN 17:20 → JD.OB 17:20
PROVIDERS: ADMIT Obstetrics & Gynecology; ATTEND Obstetrics & Gynecology
PROC: 10E0XZZ Delivery of Products of Conception, External Approach (ICD-10-PCS; principal; 2020-02-21)
PROC: 10907ZC Drainage of Amniotic Fluid, Therapeutic from Products of Conception, Via Natural or Artificial Opening (ICD-10-PCS; 2020-02-21)
PROC: 3E02340 Introduction of Influenza Vaccine into Muscle, Percutaneous Approach (ICD-10-PCS; 2020-02-22)
DX: O69.81X0 Labor and delivery complicated by cord around neck, without compression, not applicable or unspecified (principal); Z37.0 Single live birth; Z3A.37 37 weeks gestation of pregnancy; Z23 Encounter for immunization; Z20.828 Contact with and (suspected) exposure to other viral communicable diseases
CPT/HCPCS: 36415; 59025; 59409; 85025; 86592; 90686; A9270-GY; G0008; J2590; U0002

== ENCOUNTER 2023-02-02 07:48 | Inpatient (IN) | payer BC ==
[2023-02-02] MEDS ORDERED: Nalbuphine HCl 10 MG/ 1ML Amp IVPUSH PRN (07:55)
[2023-02-02] MEDS ORDERED: Sodium Chloride 0.9% 10 ML Syringe FLUSH PRN (07:55)
[2023-02-02] MEDS ORDERED: Lactated Ringers 1,000 ML IV SCH (08:00)
[2023-02-02] MEDS ORDERED: Oxytocin/Lactated Ringers 10 UNIT/1,000 ML BAG IV SCH (08:00)
[2023-02-02 08:10] LABS: BASOPHILS PERCENT AUTO 0.4 % (0.0-1.0); EOSINOPHILS PERCENT AUTO 0.3 % (0.0-6.0); HEMATOCRIT 36.7 % (37.0-47.0); HEMOGLOBIN 11.5 gm/dl (12.0-16.0); IMMATURE GRAN ABSOLUTE AUTO 0.06 K/mm3 (0.00-0.05); IMMATURE GRAN PERCENT AUTO 0.9 % (0.0-0.4); LYMPHOCYTES ABSOLUTE AUTO 1.3 K/mm3 (1.0-4.8); LYMPHOCYTES PERCENT AUTO 19.4 % (24.0-44.0); MEAN CORPUSCULAR HEMOGLOBIN 25.9 pg (28.0-32.0); MEAN CORPUSCULAR HGB CONC 31.3 g/dl (32.0-36.0); MEAN CORPUSCULAR VOLUME 82.7 fl (83.0-99.0); MEAN PLATELET VOLUME 10.8 fl (9.4-12.3); MONOCYTES ABSOLUTE AUTO 0.5 K/mm3 (0.0-0.8); MONOCYTES PERCENT AUTO 6.9 % (0.0-8.0); NEUTROPHILS ABSOLUTE AUTO 4.9 K/mm3 (1.8-7.7); NEUTROPHILS PERCENT AUTO 72.1 % (41.0-71.0); PLATELET COUNT,PLT 186 K/mm3 (150-400); RED BLOOD CELL COUNT 4.44 M/mm3 (4.10-5.30); WHITE BLOOD CELL COUNT,WBC 6.84 K/mm3 (3.9-11.3)
[2023-02-02] MEDS ORDERED: Sodium Chloride 0.9% 10 ML Syringe FLUSH SCH (09:00)
[2023-02-02 10:09] LABS: A/G RATIO 0.5 (1-2); ALANINE AMINOTRANSFERASE,ALT 16 U/L (14-59); ALBUMIN 2.4 g/dl (3.4-5.0); ALKALINE PHOSPHATASE 143 U/L (46-116); ANION GAP 15.2 (5-15); ASPARTATE AMNIOTRANSFERASE,AST 22 U/L (15-37); BILIRUBIN TOTAL 0.4 mg/dL (0.2-1.0); BLOOD UREA NITROGEN,BUN 11 mg/dL (7-18); BUN/CREATININE RATIO 15.7 (14-18); CALCIUM 9.6 mg/dL (8.5-10.1); CARBON DIOXIDE,CO2 23 mEq/L (21-32); CHLORIDE,CL 104 mEq/L (98-107); CREATININE 0.7 mg/dL (0.55-1.02); ESTIMATED GFR 116 mL/min (>60); GLUCOSE RANDOM 90 mg/dL (70-99); POTASSIUM,K 4.2 mEq/L (3.5-5.1); PROTEIN TOTAL,TP 7.2 g/dl (6.4-8.2); SODIUM,NA 138 mEq/L (136-145)
[2023-02-02] MEDS ORDERED: Witch Hazel Medicated Pads 40/Jar TOP PRN (10:43)
[2023-02-02] MEDS ORDERED: Ibuprofen 600 MG Tab PO PRN (10:43)
[2023-02-02] MEDS ORDERED: Benzocaine/Menthol 20%-0.5% Spray 78 GM Cannister TOP PRN (10:43)
[2023-02-02] MEDS ORDERED: Acetaminophen 325 MG Tab PO PRN (10:43)
[2023-02-02] MEDS ORDERED: Lidocaine 1% 50 ML MDV INJECT ONE (13:00)
[2023-02-03 02:38] VITALS: BP 124/85; PULSE 95
== END 2023-02-03 11:16 | disposition home or self-care (01) | DRG 560 ==
LOC: JD.OBCHECK 07:48 → JD.OB 07:52 → JD.OBCHECK 09:13 → JD.OB 09:36
PROVIDERS: ADMIT Family Medicine; ATTEND Family Medicine
PROC: 10E0XZZ Delivery of Products of Conception, External Approach (ICD-10-PCS; principal; 2023-02-02)
PROC: 10907ZC Drainage of Amniotic Fluid, Therapeutic from Products of Conception, Via Natural or Artificial Opening (ICD-10-PCS; 2023-02-02)
DX: O14.04 Mild to moderate pre-eclampsia, complicating childbirth (principal); Z3A.36 36 weeks gestation of pregnancy; Z37.0 Single live birth
CPT/HCPCS: 36415; 59025; 59409; 80053; 85025; 86592; J2590